=== PATIENT | female | born 1995 | race Caucasian/White ===

== ENCOUNTER 2022-04-20 15:10 | Emergency (ER) | payer OTHER ==
[2022-04-20 15:14] VITALS: BP 145/88; PULSE 90; RESP 18; TEMP 97.7; BMI 30.9
== END 2022-04-20 16:58 | disposition home or self-care (01) ==
LOC: JERFT 15:10
DX: S60.111A Contusion of right thumb with damage to nail, initial encounter (principal)
CPT/HCPCS: 73130-TC-RT-FY; 99284-25